=== PATIENT | male | born 1980 | race Caucasian/White ===

== ENCOUNTER 2022-11-02 20:41 | Outpatient (CLI) | payer OTHER, SELFPAY ==
--- NOTE | 2022-11-17 08:55 | P.SLS_ITS ---
Sleep Study Details Details Interpreting Provider: Bobby Wilson MD Date of Sleep Study: 11/02/22 Sleep Study Details: STUDY TYPE:? Hospital ? BMI:? 32.1 [facility] INDICATION:? Concerns about sleep apnea ? SLEEP SUMMARY:? Total sleep time 400, efficiency 91.2, arousal index 8.7 RESPIRATORY SUMMARY:? Mean oxygen awake 93 asleep 92, minimum 87, 0.6 minutes oxygen between 80 and 88% AHI 3.3, RDI 5.7 Supine AHI 56 Six nonsupine AHI 1.2 PERIODIC LIMB MOVEMENTS OF SLEEP:? Index 2.3 index with arousal 0 CARDIAC:? Awake 76 asleep 77. No arrhythmia noted IMPRESSION:? This study demonstrates very mild obstructive sleep apnea overall with an RDI of 5.7 although the AHI was within normal limits at 3.3. The patient has severe apnea in the supine position. RECOMMENDATION: Patient should avoid supine sleep. If the patient has symptomatic sleepiness or often sleeps supine than treatment options would include AutoSet CPAP dental appliance and/or airway expansion surgery
== END 2022-11-02 20:42 | disposition home or self-care (01) ==
PROVIDERS: Visit Provider Chiropractor
DX: G47.33 Obstructive sleep apnea (adult) (pediatric) (principal)
CPT/HCPCS: 95810; A9270